=== PATIENT | male | born 1995 | race African-American/Black ===

== ENCOUNTER → 2020-05-06 | Emergency (ER) | payer OTHER ==
[~2020-05-06] VITALS: Ht 170.2 cm; Wt 72.6 kg
[~2020-05-06] MED LIST: KEPPRA750 MG
== END | disposition left against medical advice (07) ==
LOC: ER 20:20
DX: G40.802 Other epilepsy, not intractable, without status epilepticus (principal); R11.11 Vomiting without nausea; R53.81 Other malaise